=== PATIENT | female | born 1975 | race Caucasian/White ===

== ENCOUNTER 2018-11-14 08:39 | Day surgery (SDC) | payer MEDICAID ==
[~2018-11-14 08:39] MED LIST: CEFAZOLIN 2 GM/50 ML (PMX) 50 ML IVPB; SOD CHLORIDE 0.9% 1,000 ML IV
[2018-11-14] MEDS ORDERED: PROPOFOL 20 ML (12:10)
[2018-11-14] MEDS ORDERED: FENTAnyl 50 MCG/ML VIAL ×2 (12:10→12:11)
[2018-11-14] MEDS ORDERED: MIDAZOLAM 1 MG/ML 2 ML INJ (12:10)
[2018-11-14] MEDS ORDERED: CEFAZOLIN 1 GM INJ (12:10)
[2018-11-14] MEDS ORDERED: METOCLOPRAMIDE 10 MG INJ (12:19)
[2018-11-14] MEDS ORDERED: DEXAMETHASONE 4 MG/ML 5 ML INJ (12:19)
[2018-11-14] MEDS ORDERED: KETOROLAC 30 MG INJ (12:19)
[2018-11-14] MEDS ORDERED: ONDANSETRON 4 MG INJ (12:19)
[2018-11-14] MEDS ORDERED: EPHEDrine SULFATE 50 MG/5 ML SYG IV (12:30)
[2018-11-14] MEDS ORDERED: OXYCODONE/ACETAMINOPHEN (5/325) TAB PO (12:30)
[2018-11-14] MEDS ORDERED: HYDROmorphONE 1 MG/5 ML IV SYRINGE IV ×3 (12:30)
[2018-11-14] MEDS ORDERED: METOCLOPRAMIDE 10 MG INJ IV (12:30)
[2018-11-14] MEDS ORDERED: FENTAnyl 50 MCG/ML VIAL IV ×3 (12:30)
[2018-11-14] MEDS ORDERED: PHENYLephrine (100 MCG/ML) 5ML SYG (12:43)
[2018-11-14] MEDS: SOD CHLORIDE 0.9% 1,000 ML IV (13:28)
[2018-11-14] MEDS ORDERED: HYDROCODONE/APAP (7.5/325) TAB PO (13:30)
[2018-11-14] MEDS: ONDANSETRON 4 MG INJ IV (13:32)
== END 2018-11-14 14:38 | disposition home or self-care (01) ==
LOC: SDS 08:39
DX: N60.91 Unspecified benign mammary dysplasia of right breast (principal)
CPT/HCPCS: 19301; 88307